=== PATIENT | female | born 1970 ===

== ENCOUNTER 2016-09-13 13:13 | Emergency (ER) | payer MEDICAID ==
[2016-09-13 13:13] VITALS: BMI 29.2
[2016-09-13 13:24] VITALS: RESP 18; O2SAT 99
--- NOTE | 2016-09-13 14:55 | C.PDOC ---
History Of Present Illness 46 y/o female presents to the ED with complains of rash to entire hairline and neck with associated itchiness x2 weeks. Symptoms onset after using new hair dye. Pt saw PMD and was given 1% hydrocortisone cream without relief. Pt admits to scratching the area and now has small wound. Denies fever, chills, difficulty swallowing, SOB, cough or any other complaints. Time Seen by Provider: 09/13/16 13:33 Chief Complaint (Nursing): Abnormal Skin Integrity History Per: Patient History/Exam Limitations: no limitations Onset/Duration Of Symptoms: Days Current Symptoms Are (Timing): Still Present Quality Of Symptoms: Itching Severity: Moderate Recent travel outside of the [place]: No Past Medical History Reviewed: Historical Data, Nursing Documentation, Vital Signs Vital Signs: Last Vital Signs Temp 98 F 09/13/16 15:27 Pulse 80 09/13/16 15:27 Resp 18 09/13/16 15:27 BP 110/68 09/13/16 15:27 Pulse Ox 99 09/13/16 15:31 - Medical History PMH: Arthritis, Diabetes, Deep Vein Thrombosis (age 27), Gall Bladder Disease, Hypercholesterolemia Surgical History: (x3) Family History: States: Unknown Family Hx - Social History Hx Tobacco Use: No Hx Alcohol Use: No Hx Substance Use: No - Immunization History Hx Tetanus Toxoid Vaccination: No Hx Influenza Vaccination: No Hx Pneumococcal Vaccination: No Review Of Systems Except As Marked, All Systems Reviewed And Found Negative. Constitutional: Negative for: Fever ENT: Negative for: Throat Swelling Respiratory: Negative for: Cough, Shortness of Breath Skin: Positive for: Rash (neck and along hairline) Physical Exam - Physical Exam Appears: Non-toxic, No Acute Distress Skin: Warm, Dry, Other (2x1 cm erosion w/o signs of infection to left lateral neck; erythema and scaling along hairline and neck) Head: Atraumatic, Normacephalic Nose: Normal Oral Mucosa: Moist Throat: Normal, No Erythema Neck: Normal ROM, Supple Chest: Symmetrical Cardiovascular: Rhythm Regular, No Murmur Respiratory: Normal Breath Sounds, No Rales, No Rhonchi, No Wheezing Extremity: Bilateral: Atraumatic Neurological/Psych: Oriented x3 ED Course And Treatment O2 Sat by Pulse Oximetry: 99 (on room air) Pulse Ox Interpretation: Normal Disposition - Disposition Disposition: HOME/ ROUTINE Disposition Time: 14:55 Condition: STABLE Additional Instructions: Follow up with portrait photographer within 1-2 days. Return to ED if feel worse. Prescriptions: hydrOXYzine HCl [Atarax] 25 mg PO Q6H #30 tab Mupirocin 2% Ointment [Bactroban Ointment] 1 appl TP BID #1 tube Clobetasol Propionate [Olux] 1 appl TP BID #100 g Instructions: Contact Dermatitis (ED) - Clinical Impression Clinical Impression: Allergic contact dermatitis - PA / GAME DESIGNER / Resident Statement MD/DO has reviewed & agrees with the documentation as recorded. - Scribe Statement The provider has reviewed the documentation as recorded by the Kimberley Jaquez All medical record entries made by the Kimberley were at my direction and personally dictated by me. I have reviewed the chart and agree that the record accurately reflects my personal performance of the history, physical exam, medical decision making, and the department course for this patient. I have also personally directed, reviewed, and agree with the discharge instructions and disposition.
[2016-09-13 15:28] VITALS: BP 110/68; PULSE 80; TEMP 98
== END 2016-09-13 15:20 | disposition home or self-care (01) ==
LOC: C.ER 13:13
DX: L23.4 Allergic contact dermatitis due to dyes (principal)

== ENCOUNTER 2017-07-09 11:39 | Emergency (ER) | payer MEDICAID ==
[2017-07-09 11:39] VITALS: BMI 29.2
[2017-07-09 12:05] VITALS: BP 119/76; PULSE 78; RESP 20; TEMP 98.4; O2SAT 98
--- NOTE | 2017-07-09 12:55 | C.PDOC ---
History Of Present Illness 47-year-old female, presents to the emergency department with complaints of allergic reaction to hair dye, that she used yesterday. Patient has known allergy. Denies shortness of breath, throat swelling, tongue/lip swelling or any other associated symptoms. No other complaints at this time. Time Seen by Provider: 07/09/17 12:30 Chief Complaint (Nursing): Allergic Reaction History Per: Patient History/Exam Limitations: no limitations Onset/Duration Of Symptoms: Days Current Symptoms Are (Timing): Still Present Past Medical History Reviewed: Historical Data, Nursing Documentation, Vital Signs Vital Signs: Last Vital Signs Temp 98.4 F 07/09/17 12:02 Pulse 78 07/09/17 12:02 Resp 20 07/09/17 12:02 BP 119/76 07/09/17 12:02 Pulse Ox 98 07/09/17 12:56 - Medical History PMH: Arthritis, Diabetes, Deep Vein Thrombosis (age 27), Gall Bladder Disease, Hypercholesterolemia Surgical History: (x3) Family History: States: No Known Family Hx - Social History Hx Tobacco Use: No Hx Alcohol Use: No Hx Substance Use: No - Immunization History Hx Tetanus Toxoid Vaccination: No Hx Influenza Vaccination: No Hx Pneumococcal Vaccination: No Review Of Systems Constitutional: Negative for: Fever ENT: Negative for: Throat Pain, Throat Swelling Cardiovascular: Negative for: Chest Pain, Palpitations Respiratory: Negative for: Shortness of Breath Gastrointestinal: Negative for: Nausea, Vomiting Skin: Positive for: Rash (allergic reaction after using hair dye) Physical Exam - Physical Exam Skin: Warm, Dry, Other (erythematous rash to scalp and tops of ears with small vesicles to tips of ears) Head: Normacephalic Eye(s): bilateral: Normal Inspection, PERRL Ear(s): Bilateral: Normal Nose: Normal, No Flaring, No Discharge Oral Mucosa: Moist Tongue: Normal Appearing, No Swelling Lips: Normal Appearing, No Swelling Throat: Normal (No airway compromise), No Erythema Neck: Normal ROM Cardiovascular: Rhythm Regular, No Murmur Respiratory: Normal Breath Sounds, No Accessory Muscle Use Extremity: Normal ROM Neurological/Psych: Oriented x3, Normal Speech ED Course And Treatment O2 Sat by Pulse Oximetry: 98 (RA) Pulse Ox Interpretation: Normal Progress Note: Patient treated with Benadryl and Prednisone. On reassessment, patient is resting comfortably, and is in no acute distress. Patient was instructed to follow up with physician/clinic in 1-2 days for further evaluation. Disposition Counseled Patient/Family Regarding: Diagnosis, Need For Followup, Rx Given - Disposition Referrals: Erika Gonzalez MD [Medical Doctor] - Disposition: HOME/ ROUTINE Disposition Time: 13:10 Condition: STABLE Additional Instructions: SEGUIMIENTO CON AMAYA MDICO EN 1-2 COE USE MEDICAMENTOS SEGN LO INDICADO NO UTILICE EMORY TIPO DE T[place] DE PELO OTRA VEZ REGRESE AL MEAGAN DE EMERGENCIA SI LOS [place] EMPEORAN FOLLOW UP WITH YOUR DOCTOR IN 1-2 DAYS USE MEDICATIONS DIRECTED DO NOT USE THIS TYPE OF HAIR DYE AGAIN RETURN TO EMERGENCY ROOM IF SYMPTOMS WORSEN Prescriptions: Benzonatate [Tessalon Perles] 100 mg PO BID PRN #15 sgl PRN Reason: Cough DiphenhydrAMINE [Benadryl] 25 mg PO Q6 PRN #20 cap PRN Reason: ALLERGIES predniSONE [predniSONE Tab] 40 mg PO DAILY #6 tab Instructions: Contact Dermatitis (DC) Forms: [employer] (Icelandic) Print Language: CUBAN - POA Present On Arrival: None - Clinical Impression Clinical Impression: Allergic reaction, Allergic contact dermatitis, Viral upper respiratory illness - Scribe Statement The provider has reviewed the documentation as recorded by the Scribe (Pamela Perry) Provider Attestation: All medical record entries made by the Scribe were at my direction and personally dictated by me. I have reviewed the chart and agree that the record accurately reflects my personal performance of the history, physical exam, medical decision making, and the department course for this patient. I have also personally directed, reviewed, and agree with the discharge instructions and disposition.
== END 2017-07-09 13:07 | disposition home or self-care (01) ==
LOC: C.ER 11:39
DX: L23.4 Allergic contact dermatitis due to dyes (principal); J06.9 Acute upper respiratory infection, unspecified

== ENCOUNTER 2017-07-16 13:47 | Emergency (ER) | payer MEDICAID ==
[2017-07-16 13:47] VITALS: BMI 29.2
--- NOTE | 2017-07-16 15:16 | C.PDOC ---
History Of Present Illness 47-year-old female, presents to the emergency department with complaints of right-sided abdominal and flank pain for the past 1.5 months. Pain is intermittent in nature and non-radiating. States she was diagnosed with gallstones. Patient denies nausea/vomiting, fever, symptoms, back pain, dizziness, chest pain, shortness of breath or any other associated symptoms. No other complaints at this time. Time Seen by Provider: 07/16/17 14:56 Chief Complaint (Nursing): Abdominal Pain History Per: Patient History/Exam Limitations: no limitations Past Medical History Reviewed: Historical Data, Nursing Documentation, Vital Signs Vital Signs: Last Vital Signs Temp 97.8 F 07/16/17 13:56 Pulse 90 07/16/17 13:56 Resp 18 07/16/17 13:56 BP 113/77 07/16/17 13:56 Pulse Ox 97 07/16/17 18:11 - Medical History PMH: Arthritis, Diabetes, Deep Vein Thrombosis (age 27), Gall Bladder Disease, Hypercholesterolemia Surgical History: (x3) Family History: States: No Known Family Hx - Social History Hx Tobacco Use: No Hx Alcohol Use: No Hx Substance Use: No - Immunization History Hx Tetanus Toxoid Vaccination: No Hx Influenza Vaccination: No Hx Pneumococcal Vaccination: No Review Of Systems Except As Marked, All Systems Reviewed And Found Negative. Constitutional: Negative for: Fever Cardiovascular: Negative for: Chest Pain Respiratory: Negative for: Shortness of Breath Gastrointestinal: Positive for: Abdominal Pain. Negative for: Vomiting Genitourinary: Negative for: Dysuria, Frequency, Hematuria Musculoskeletal: Negative for: Back Pain Neurological: Negative for: Weakness, Numbness Physical Exam - Physical Exam Appears: Well, Non-toxic, No Acute Distress Skin: Normal Color, Warm, Dry, No Rash Head: Normacephalic Eye(s): bilateral: Normal Inspection, PERRL Nose: Normal Oral Mucosa: Moist Lips: Normal Appearing Neck: Normal ROM Chest: Symmetrical Cardiovascular: Rhythm Regular, No Murmur Respiratory: Normal Breath Sounds, No Accessory Muscle Use Gastrointestinal/Abdominal: Soft, No Tenderness Extremity: Normal ROM, No Deformity, No Swelling Neurological/Psych: Oriented x3, Normal Speech ED Course And Treatment - Laboratory Results Result Diagrams: 07/16/17 16:05 07/16/17 17:13 O2 Sat by Pulse Oximetry: 97 (RA) Pulse Ox Interpretation: Normal - CT Scan/US US abdomen Other Rad Studies (CT/US): Read By Radiologist, Radiology Report Reviewed CT/US Interpretation: Accession No. : [id number]. Patient Name / ID : AYO [id number] / [id number]. Exam Date : 07/16/2017 17:31:42 ( Approved ). Study Comment : Sex / Age : F / 47Y. Creator : Ellen Chua MD. Dictator : Ellen Chua MD. Devulcanizer Loader : Contracts Representative : Ellen Chua MD. Approver2 : Report Date : 07/16/2017 18:02:23. My Comment : . HISTORY: RUQ abd pain. COMPARISON: CT abdomen and pelvis without contrast performed 02/26/16. TECHNIQUE: Sonographic evaluation of the right upper quadrant of the abdomen. FINDINGS: LIVER: Measures 17.8 cm in length. Echogenic liver may be seen in setting of hepatic parenchymal disease or fatty infiltration. No focal hepatic mass identified. The main portal vein appears patent with normal directional flow. No intrahepatic bile duct dilatation. GALLBLADDER: Cholelithiasis including immobile gallstone at the gallbladder neck measures approximately 1.1 cm. No gallbladder wall thickening or pericholecystic edema. Negative sonographic Osman's sign as assessed by the applications programmer analyst. COMMON BILE DUCT: Measures 4 mm. PANCREAS: Not well- visualized. RIGHT KIDNEY: Measures 9.4 x 3.8 x 4.1 cm. No obstructing calculus or hydronephrosis identified. AORTA: Limited visualization appears grossly unremarkable. IVC: Limited visualization appears grossly unremarkable. OTHER FINDINGS: None . IMPRESSION: Cholelithiasis including immobile gallstone at the gallbladder neck measures approximately 1.1 cm. No gallbladder wall thickening or pericholecystic edema. Negative sonographic Osman's sign as assessed by the applications programmer analyst. Echogenic liver may be seen in setting of hepatic parenchymal disease or fatty infiltration. Progress Note: Bloodwork, UA and US Abd ordered and reviewed. Disposition - Disposition Referrals: Brayan Gaitan MD [Staff Provider] - Erika Gonzalez MD [Medical Doctor] - Disposition: HOME/ ROUTINE Disposition Time: 18:41 Condition: STABLE Additional Instructions: Follow up with your PMD and general 3d specialist within 1-2 days. Return to ED if feel worse. Instructions: Gallstones (DC) Forms: [employer] (Marshallese) Print Language: LAO - Clinical Impression Clinical Impression: Cholelithiasis - Scribe Statement The provider has reviewed the documentation as recorded by the Scribe (Pamela Perry) All medical record entries made by the Scribe were at my direction and personally dictated by me. I have reviewed the chart and agree that the record accurately reflects my personal performance of the history, physical exam, medical decision making, and the department course for this patient. I have also personally directed, reviewed, and agree with the discharge instructions and disposition.
[2017-07-16 16:28] LABS: BASO % 0.4 % (0.0-2.0); EOS # 0.4 K/uL (0.0-0.7); EOS % 4.1 % (0.0-4.0); HEMOGLOBIN 13.6 g/dL (11.0-16.0); LYMPH % 28.7 % (20.0-40.0); MEAN CORPUSCULAR HEMOGLOBIN 30.3 pg (27.0-31.0); MEAN CORPUSCULAR HGB CONC 33.3 g/dL (33.0-37.0); MEAN PLATELET VOLUME 8.3 fL (7.2-11.7); MONO # 0.6 K/uL (0.0-0.8); MONO % 5.7 % (0.0-10.0); NEUT # 6.4 K/uL (1.8-7.0); NEUT % 61.1 % (50.0-75.0); NRBC % 0.1 % (0.0-2.0); RBC 4.5 Mil/uL (3.80-5.20); RED CELL DISTRIBUTION WIDTH 12.2 % (11.5-14.5)
[2017-07-16 16:38] LABS: WHITE BLOOD COUNT 10.5 K/uL (4.8-10.8)
[2017-07-16 16:41] LABS: SQUAMOUS EPITHIAL 4 /hpf (0-5); URINE BILIRUBIN NEGATIVE (NEGATIVE); URINE BLOOD NEGATIVE (NEGATIVE); URINE CLARITY Hazy (Clear); URINE COLOR Yellow (YELLOW); URINE GLUCOSE (UA) NORMAL (Normal); URINE LEUKOCYTE ESTERASE NEG Leu/uL (Negative); URINE NITRATE NEGATIVE (NEGATIVE); URINE PROTEIN NEGATIVE (NEGATIVE); URINE UROBILINOGEN NORMAL mg/dL (0.2-1.0)
[2017-07-16 16:43] LABS: HCG,QUALITATIVE URINE NEGATIVE (NEGATIVE)
[2017-07-16 17:21] LABS: CALCIUM 9.5 mg/dl (8.6-10.4); GFR AFRICAN-AMERICAN > 60; GFR NON-AFRICAN AMERICAN > 60; LIPASE 95 U/L (23-300)
[2017-07-16 17:22] LABS: ALBUMIN 4.4 g/dL (3.5-5.0); ALT/SGPT 165 U/L (9-52); AST/SGOT 110 U/L (14-36); BLOOD UREA NITROGEN 18 mg/dL (7-17)
--- NOTE | 2017-07-16 18:03 | US ---
HISTORY: RUQ abd pain COMPARISON: CT abdomen and pelvis without contrast performed 02/26/16 TECHNIQUE: Sonographic evaluation of the right upper quadrant of the abdomen. FINDINGS: LIVER: Measures 17.8 cm in length. Echogenic liver may be seen in setting of hepatic parenchymal disease or fatty infiltration. No focal hepatic mass identified. The main portal vein appears patent with normal directional flow. No intrahepatic bile duct dilatation. GALLBLADDER: Cholelithiasis including immobile gallstone at the gallbladder neck measures approximately 1.1 cm. No gallbladder wall thickening or pericholecystic edema. Negative sonographic Osman's sign as assessed by the digital sales executive. COMMON BILE DUCT: Measures 4 mm. PANCREAS: Not well-visualized. RIGHT KIDNEY: Measures 9.4 x 3.8 x 4.1 cm. No obstructing calculus or hydronephrosis identified. AORTA: Limited visualization appears grossly unremarkable. IVC: Limited visualization appears grossly unremarkable. OTHER FINDINGS: None . IMPRESSION: Cholelithiasis including immobile gallstone at the gallbladder neck measures approximately 1.1 cm. No gallbladder wall thickening or pericholecystic edema. Negative sonographic Osman's sign as assessed by the digital sales executive. Echogenic liver may be seen in setting of hepatic parenchymal disease or fatty infiltration.
[2017-07-16 18:57] VITALS: BP 100/64; PULSE 80; RESP 20; TEMP 98
[2017-07-17 19:41] VITALS: O2SAT 97
== END 2017-07-16 19:06 | disposition home or self-care (01) ==
LOC: C.ER 13:47
DX: K80.20 Calculus of gallbladder without cholecystitis without obstruction (principal); E11.9 Type 2 diabetes mellitus without complications; E78.00 Pure hypercholesterolemia, unspecified

== ENCOUNTER 2017-12-22 14:20 | Emergency (ER) | payer MEDICAID ==
[2017-12-22 14:20] VITALS: BMI 29.2
[2017-12-22 14:40] VITALS: BP 103/71; PULSE 98; RESP 20; TEMP 98.7; O2SAT 100
--- NOTE | 2017-12-22 14:41 | C.PDOC ---
History Of Present Illness Patient is a 47 y/o F complaining of myalgias, headache, sore throat, nausea and diarrhea and dysuria that began this morning. Denies fever. Reports that she hasn't taken anything for the pain. Denies vomiting or abdominal pain. Denies recent travel outside [place] or recent antibiotic use Time Seen by Provider: 12/22/17 14:32 Chief Complaint (Nursing): Flu-like Symptoms Past Medical History Vital Signs: Last Vital Signs Temp 98.7 F 12/22/17 14:39 Pulse 98 H 12/22/17 14:39 Resp 20 12/22/17 14:39 BP 103/71 12/22/17 14:39 Pulse Ox 100 12/22/17 14:39 - Medical History PMH: Arthritis, Diabetes, Deep Vein Thrombosis (age 27), Gall Bladder Disease, Hypercholesterolemia Surgical History: (x3) Family History: States: Unknown Family Hx - Social History Hx Tobacco Use: No Hx Alcohol Use: No Hx Substance Use: No - Immunization History Hx Tetanus Toxoid Vaccination: No Hx Influenza Vaccination: No Hx Pneumococcal Vaccination: No Review Of Systems Constitutional: Negative for: Fever, Chills ENT: Positive for: Throat Pain (sore throat). Negative for: Ear Pain, Nose Discharge Cardiovascular: Negative for: Chest Pain, Palpitations Respiratory: Negative for: Cough, Shortness of Breath, SOB with Excertion, Wheezing Gastrointestinal: Positive for: Nausea, Diarrhea. Negative for: Vomiting, Abdominal Pain, Constipation Genitourinary: Negative for: Frequency, Incontinence, Vaginal Discharge, Vaginal Bleeding Musculoskeletal: Positive for: Other (myalgias) Skin: Negative for: Rash Neurological: Negative for: Weakness, Numbness Physical Exam - Physical Exam Appears: Well, Non-toxic, No Acute Distress Skin: Normal Color, Warm, Dry Head: Atraumatic, Normacephalic Eye(s): bilateral: Normal Inspection, PERRL, EOMI Ear(s): Bilateral: Normal Nose: Normal Oral Mucosa: Moist Tongue: Normal Appearing Lips: Normal Appearing Teeth: Normal Dentition Gingiva: Normal Appearing Throat: Erythema, No Exudate Neck: Supple Chest: Symmetrical Cardiovascular: Rhythm Regular Respiratory: Normal Breath Sounds, No Rales, No Rhonchi, No Wheezing Gastrointestinal/Abdominal: Normal Exam, No Soft, No Tenderness, No Distention Back: Normal Inspection, No CVA Tenderness Extremity: Normal ROM Neurological/Psych: Oriented x3, Normal Speech, Normal Cranial Nerves, Normal Motor, Normal Sensation Gait: Steady ED Course And Treatment Progress Note: Patient well appearing Presentation consistent with viral illness. Rapid strep sent. Toradol given. No complaint of fever. Denies dysuria. Abdomen soft NT/ND. Lungs cta b/l. Neck supple. UA shows hematuria and patient instructed to follow-up with urology. Strep negative. Disposition - Disposition Referrals: Nikos Figueroa MD [Staff Provider] - [facility] [Outside] Disposition: HOME/ ROUTINE Disposition Time: 15:16 Condition: GOOD Additional Instructions: Follow-up with [facility]D or [facility] within 2 days. Return to ED if condition worsens. Motrin for pain. Follow-up with urology for hematuria Instructions: Viral Pharyngitis, Blood in the Urine (Hematuria) in Adults Forms: [employer] (French) - Clinical Impression Clinical Impression: Influenza-like illness, Hematuria, Viral pharyngitis
[2017-12-22 15:10] LABS: SQUAMOUS EPITHIAL 5 /hpf (0-5); URINE BILIRUBIN NEGATIVE (NEGATIVE); URINE BLOOD 1+ (NEGATIVE); URINE CLARITY Hazy (Clear); URINE COLOR Yellow (YELLOW); URINE GLUCOSE (UA) NORMAL (Normal); URINE LEUKOCYTE ESTERASE NEG Leu/uL (Negative); URINE PROTEIN NEGATIVE (NEGATIVE); URINE UROBILINOGEN NORMAL mg/dL (0.2-1.0)
== END 2017-12-22 15:35 | disposition home or self-care (01) ==
LOC: C.ER 14:20
DX: J11.1 Influenza due to unidentified influenza virus with other respiratory manifestations (principal); R31.9 Hematuria, unspecified
CPT/HCPCS: 81001; 87070; 87430; 96372; 99283; J1885

== ENCOUNTER 2018-06-10 10:13 | Outpatient (CLI) | payer MEDICAID | END 2018-06-10 10:14 | disposition home or self-care (01) | LOC: C.MAMMO 10:13 | DX: D05.12 Intraductal carcinoma in situ of left breast (principal) ==